=== PATIENT | female | born 1985 | race African-American/Black ===

== ENCOUNTER 2017-05-01 21:28 | Outpatient (CLI) | payer BC ==
[2017-05-02 00:12] LABS: ADD UMIC NO; UR ASCORBIC ACID NEGATIVE (NEGATIVE); UR BILIRUBIN (Dip) NEGATIVE (NEGATIVE); UR BLOOD (Dip) NEGATIVE (NEGATIVE); UR CLARITY SLIGHTLY CLOUDY (CLEAR); UR COLOR YELLOW (YELLOW); UR GLUCOSE (Dip) NEGATIVE (NEGATIVE); UR KETONES (Dip) NEGATIVE (NEGATIVE); UR LEUKOCYTE ESTERASE (Dip) NEGATIVE Leu/ul (NEGATIVE); UR NITRITE (Dip) NEGATIVE (NEGATIVE); UR RBC 0 /HPF (0-5); UR SPECIFIC GRAVITY (Dip) 1.011 (1.003-1.030); UR TOTAL PROTEIN (Dip) NEGATIVE (NEGATIVE); UR UROBILINOGEN (Dip) NEGATIVE (NEGATIVE); UR WBC 1 /HPF (0-5)
== END 2017-05-02 01:34 | disposition home or self-care (01) ==
LOC: OBT 21:28 → L-D 21:30
DX: O26.892 Other specified pregnancy related conditions, second trimester (principal); S30.1XXD Contusion of abdominal wall, subsequent encounter; W50.0XXD Accidental hit or strike by another person, subsequent encounter; O30.002 Twin pregnancy, unspecified number of placenta and unspecified number of amniotic sacs, second trimester; Z3A.27 27 weeks gestation of pregnancy
CPT/HCPCS: 76818; 81001; 81003; 87086

== ENCOUNTER 2017-05-23 02:31 | Inpatient (IN) | payer BC ==
[2017-05-23] MEDS: SOD CHLORIDE 0.9% 1,000 ML IV ×3 (03:05→17:37)
[2017-05-23 03:31] LABS: ADD MAN DIFF? NO
[2017-05-23 04:29] LABS: WHITE BLOOD COUNT 9.2 10^3/ul (4.8-10.8)
[2017-05-23 04:29] LABS: BASOPHIL # 0.1 10^3/ul (0.0-0.1); BASOPHILS % 1.1 % (0.0-2.0); EOSINOPHILS # 0.2 10^3/ul (0.0-0.5); EOSINOPHILS % 2.3 % (0.0-7.0); HEMOGLOBIN 9.9 g/dl (12.0-16.0); LYMPHOCYTES # 1.9 10^3/ul (0.8-2.9); LYMPHOCYTES % 20.2 % (15.0-51.0); MEAN CORPUSCULAR HEMOGLOBIN 29.9 pg (29.0-33.0); MEAN CORPUSCULAR HGB CONC 34.1 g/dl (32.0-37.0); MEAN CORPUSCULAR VOLUME 87.6 fl (82.0-101.0); MONOCYTES % 10.9 % (0.0-11.0); NEUTROPHIL # 5.9 10^3/ul (1.6-7.5); NEUTROPHILS % 64.3 % (39.0-77.0); PLATELET COUNT 183 10^3/UL (140-415); RED BLOOD COUNT 3.31 10^6/ul (4.20-5.40); RED CELL DISTRIBUTION WIDTH 13.2 % (11.5-14.5)
[2017-05-23 04:36] LABS: ADD UMIC NO; UR ASCORBIC ACID 20 mg/dL (NEGATIVE); UR BILIRUBIN (Dip) NEGATIVE (NEGATIVE); UR BLOOD (Dip) NEGATIVE (NEGATIVE); UR CLARITY SLIGHTLY CLOUDY (CLEAR); UR COLOR YELLOW (YELLOW); UR GLUCOSE (Dip) NEGATIVE (NEGATIVE); UR KETONES (Dip) NEGATIVE (NEGATIVE); UR LEUKOCYTE ESTERASE (Dip) NEGATIVE Leu/ul (NEGATIVE); UR NITRITE (Dip) NEGATIVE (NEGATIVE); UR RBC 0 /HPF (0-5); UR TOTAL PROTEIN (Dip) NEGATIVE (NEGATIVE); UR UROBILINOGEN (Dip) NEGATIVE (NEGATIVE); UR WBC 4 /HPF (0-5)
[2017-05-23] MEDS: MAGNESIUM SULFATE 4 GM/100 ML 100 ML IV (04:52)
[2017-05-23] MEDS: BETAMET NA PHOS/AC(6 MG/ML) 5ML INJ IM (05:21)
[2017-05-23] MEDS: MAGNESIUM SULFATE 20 GM/500 ML 500 ML IV ×2 (05:30→15:41)
[2017-05-23] MEDS: FAMOTIDINE 20 MG INJ IV (05:49)
[2017-05-23] MEDS ORDERED: FAMOTIDINE 20 MG INJ IV ×2 (09:00)
[2017-05-23] MEDS: PRENATAL VITAMIN PO (11:41)
[2017-05-23] MEDS: ACETAMINOPHEN 325 MG TAB PO ×3 (11:42→21:48)
[2017-05-23] MEDS: ASPIRIN (EC) 81 MG TAB PO (11:42)
[2017-05-23 12:45] LABS: MAGNESIUM 4.6 mg/dl (1.7-2.5)
[2017-05-23 18:38] LABS: MAGNESIUM 4.7 mg/dl (1.7-2.5)
[2017-05-24] MEDS: MAGNESIUM SULFATE 20 GM/500 ML 500 ML IV ×3 (01:44→18:54)
[2017-05-24] MEDS: FAMOTIDINE 20 MG INJ IV (01:45)
[2017-05-24] MEDS: BETAMET NA PHOS/AC(6 MG/ML) 5ML INJ IM (05:22)
[2017-05-24] MEDS: SOD CHLORIDE 0.9% 1,000 ML IV ×2 (05:59→18:53)
[2017-05-24] MEDS: ACETAMINOPHEN 325 MG TAB PO ×4 (06:12→19:11)
[2017-05-24] MEDS: ASPIRIN (EC) 81 MG TAB PO (10:30)
[2017-05-24] MEDS: PRENATAL VITAMIN PO (10:30)
[2017-05-24 10:37] LABS: MAGNESIUM 5.1 mg/dl (1.7-2.5)
[2017-05-24 19:20] LABS: MAGNESIUM 4.5 mg/dl (1.7-2.5)
[2017-05-25] MEDS: ACETAMINOPHEN 325 MG TAB PO ×5 (00:15→22:13)
[2017-05-25 00:40] LABS: MAGNESIUM 3.7 mg/dl (1.7-2.5)
[2017-05-25] MEDS: SOD CHLORIDE 0.9% 1,000 ML IV (06:27)
[2017-05-25] MEDS: ASPIRIN (EC) 81 MG TAB PO (09:29)
[2017-05-25] MEDS: PRENATAL VITAMIN PO (09:29)
[2017-05-25] MEDS: MAGNESIUM SULFATE 20 GM/500 ML 500 ML IV ×2 (12:11→22:12)
[2017-05-25] MEDS: LACTATED RINGER'S 1,000 ML IV ×2 (13:16→22:12)
[2017-05-25 19:09] LABS: MAGNESIUM 4.2 mg/dl (1.7-2.5)
[2017-05-26 00:35] LABS: MAGNESIUM 3.7 mg/dl (1.7-2.5)
[2017-05-26] MEDS: ACETAMINOPHEN 325 MG TAB PO ×4 (02:55→20:08)
[2017-05-26 08:36] LABS: MAGNESIUM 3.1 mg/dl (1.7-2.5)
[2017-05-26] MEDS: PRENATAL VITAMIN PO (09:09)
[2017-05-26] MEDS: ASPIRIN (EC) 81 MG TAB PO (09:09)
[2017-05-26] MEDS: LACTATED RINGER'S 1,000 ML IV ×2 (11:39→23:50)
[2017-05-26 12:39] LABS: MAGNESIUM 3.2 mg/dl (1.7-2.5)
[2017-05-26] MEDS: MAGNESIUM SULFATE 20 GM/500 ML 500 ML IV (23:56)
[2017-05-27] MEDS: ACETAMINOPHEN 325 MG TAB PO ×2 (05:45→09:13)
[2017-05-27 08:57] LABS: MAGNESIUM 2.7 mg/dl (1.7-2.5)
[2017-05-27] MEDS ORDERED: PRENATAL VITAMIN PO (09:00)
[2017-05-27] MEDS: ASPIRIN (EC) 81 MG TAB PO (09:09)
[2017-05-27] MEDS: PRENATAL VITAMIN PO (09:09)
[2017-05-27] MEDS: LACTATED RINGER'S 1,000 ML IV ×3 (09:10→22:46)
[2017-05-27] MEDS: NIFEdipine 10 MG CAP PO (18:14)
[2017-05-28] MEDS: NIFEdipine 10 MG CAP PO ×4 (00:24→17:37)
[2017-05-28] MEDS: LACTATED RINGER'S 1,000 ML IV ×2 (08:01→17:37)
[2017-05-28] MEDS: ASPIRIN (EC) 81 MG TAB PO (08:56)
[2017-05-28] MEDS: PRENATAL VITAMIN PO (08:56)
[2017-05-29] MEDS: NIFEdipine 10 MG CAP PO ×3 (00:13→12:29)
[2017-05-29] MEDS: PRENATAL VITAMIN PO (09:50)
[2017-05-29] MEDS: ASPIRIN (EC) 81 MG TAB PO (09:50)
== END 2017-05-29 18:05 | disposition home or self-care (01) | DRG 778 ==
LOC: OBT 02:31 → L-D 02:33 → OBT 06:13 → L-D 06:14 → PP1 07:14
PROVIDERS: Obstetrics & Gynecology
DX: O60.03 Preterm labor without delivery, third trimester (principal); O26.873 Cervical shortening, third trimester; Z3A.30 30 weeks gestation of pregnancy; O30.003 Twin pregnancy, unspecified number of placenta and unspecified number of amniotic sacs, third trimester
CPT/HCPCS: 36415; 76817; 76818; 81001; 81003; 83735; 85025; 87086

== ENCOUNTER 2017-06-25 04:56 | Inpatient (IN) | payer BC ==
[2017-06-25] MEDS: NIFEdipine 10 MG CAP PO ×3 (05:49→17:49)
[2017-06-25] MEDS: LACTATED RINGER'S 1,000 ML IV ×3 (05:49→17:44)
[2017-06-25] MEDS ORDERED: LACTATED RINGER'S 500 ML IV (06:00)
[2017-06-25 06:33] LABS: ADD MAN DIFF? NO
[2017-06-25 06:43] LABS: BASOPHIL # 0.1 10^3/ul (0.0-0.1); BASOPHILS % 0.5 % (0.0-2.0); EOSINOPHILS # 0.1 10^3/ul (0.0-0.5); EOSINOPHILS % 0.8 % (0.0-7.0); HEMATOCRIT 30.6 % (37.0-47.0); HEMOGLOBIN 10.1 g/dl (12.0-16.0); LYMPHOCYTES # 1.7 10^3/ul (0.8-2.9); LYMPHOCYTES % 18.4 % (15.0-51.0); MEAN CORPUSCULAR HEMOGLOBIN 28.2 pg (29.0-33.0); MEAN CORPUSCULAR VOLUME 85.5 fl (82.0-101.0); MEAN PLATELET VOLUME 11.8 fl (7.4-10.4); MONOCYTE # 1.1 10^3/ul (0.3-0.9); NEUTROPHIL # 6.2 10^3/ul (1.6-7.5); PLATELET COUNT 167 10^3/UL (140-415); RED BLOOD COUNT 3.58 10^6/ul (4.20-5.40); RED CELL DISTRIBUTION WIDTH 13.5 % (11.5-14.5)
[2017-06-25 06:43] LABS: WHITE BLOOD COUNT 9.2 10^3/ul (4.8-10.8)
[2017-06-25 07:02] LABS: INR 0.96; PROTIME 12.9 Sec (11.9-14.9)
[2017-06-25 07:03] LABS: PARTIAL THROMBOPLASTIN TIME 27.8 Sec (25.0-35.0)
[2017-06-25] MEDS: TERBUTALINE 1 MG/ML INJ SC ×3 (07:15→11:08)
[2017-06-25] MEDS: ACETAMINOPHEN 500 MG TAB PO ×2 (07:15→17:43)
[2017-06-25] MEDS ORDERED: NIFEdipine 10 MG CAP PO (12:00)
[2017-06-25 12:44] LABS: HEPATITIS B SURFACE ANTIGEN NEGATIVE (NEGATIVE)
[2017-06-25 13:17] LABS: ADD UMIC NO; UR ASCORBIC ACID NEGATIVE (NEGATIVE); UR BILIRUBIN (Dip) NEGATIVE (NEGATIVE); UR BLOOD (Dip) NEGATIVE (NEGATIVE); UR CLARITY CLEAR (CLEAR); UR COLOR YELLOW (YELLOW); UR GLUCOSE (Dip) NEGATIVE (NEGATIVE); UR KETONES (Dip) NEGATIVE (NEGATIVE); UR LEUKOCYTE ESTERASE (Dip) NEGATIVE Leu/ul (NEGATIVE); UR NITRITE (Dip) NEGATIVE (NEGATIVE); UR SPECIFIC GRAVITY (Dip) 1.013 (1.003-1.030); UR TOTAL PROTEIN (Dip) NEGATIVE (NEGATIVE); UR UROBILINOGEN (Dip) NEGATIVE (NEGATIVE)
[2017-06-25] MEDS: morphine 2 MG INJ IV (14:01)
[2017-06-25 15:05] LABS: RAPID PLASMA REAGIN NONREACTIVE (NR)
[2017-06-25] MEDS: BETAMET NA PHOS/AC(6 MG/ML) 5ML INJ IM (16:20)
[2017-06-25] MEDS: HYDROCODONE/APAP (5/325) TAB PO (20:32)
[2017-06-26] MEDS: VITAMIN A & D 5 GM OINT PACKET TOP (00:09)
[2017-06-26] MEDS: NIFEdipine 10 MG CAP PO ×4 (00:09→23:31)
[2017-06-26] MEDS: HYDROCODONE/APAP (5/325) TAB PO ×2 (00:53→05:18)
[2017-06-26] MEDS: LACTATED RINGER'S 1,000 ML IV ×3 (02:00→23:30)
[2017-06-26] MEDS ORDERED: BUTORPHANOL 2 MG INJ IV ×2 (11:00)
[2017-06-26 13:20] LABS: AMPHETAMINE/METHAMPHETAMINE Negative (NEGATIVE); BARBITURATES Negative (NEGATIVE); BENZODIAZEPINES Negative (NEGATIVE); CANNABINOIDS Negative (NEGATIVE); COCAINE Negative (NEGATIVE); OPIATES Positive (NEGATIVE)
[2017-06-26] MEDS: BETAMET NA PHOS/AC(6 MG/ML) 5ML INJ IM (16:35)
[2017-06-27] MEDS: LACTATED RINGER'S 1,000 ML IV ×5 (00:01→15:50)
[2017-06-27] MEDS: NIFEdipine 10 MG CAP PO ×3 (05:29→12:00)
[2017-06-27] MEDS ORDERED: OXYTOCIN 30 UNITS/LR 500 ML IV (07:30)
[2017-06-27] MEDS ORDERED: METHYLERGONOVINE 0.2 MG INJ IM ×2 (07:30→16:00)
[2017-06-27] MEDS ORDERED: MISOPROSTOL 200 MCG TAB PR ×2 (07:30→16:00)
[2017-06-27] MEDS ORDERED: CARBOPROST 250 MCG INJ IM ×2 (07:30→16:00)
[2017-06-27] MEDS ORDERED: morphine SULFATE/PF (10 MG/10 ML) INJ (11:18)
[2017-06-27] MEDS ORDERED: OXYTOCIN 10 UNIT INJ ×2 (11:18→11:49)
[2017-06-27] MEDS ORDERED: ONDANSETRON 4 MG INJ (11:18)
[2017-06-27] MEDS ORDERED: PHENYLephrine (100 MCG/ML) 5ML SYG (11:18)
[2017-06-27] MEDS ORDERED: PHENYLephrine 10 MG INJ (11:37)
[2017-06-27] MEDS ORDERED: FENTAnyl 50 MCG/ML VIAL (11:58)
[2017-06-27] MEDS: CEFAZOLIN 2 GM/50 ML (PMX) 50 ML IVPB (12:25)
[2017-06-27] MEDS: KETOROLAC 30 MG INJ IV ×2 (13:15→19:39)
[2017-06-27] MEDS ORDERED: ONDANSETRON 4 MG INJ IV ×2 (13:30→16:00)
[2017-06-27] MEDS ORDERED: morphine 2 MG INJ IV (13:30)
[2017-06-27] MEDS ORDERED: NALOXONE (0.4 MG/ML) INJ IV (13:30)
[2017-06-27] MEDS: OXYTOCIN 30 UNITS/LR 500 ML IV ×3 (13:48→22:09)
[2017-06-27] MEDS: morphine 10 MG INJ IV (14:04)
[2017-06-27] MEDS ORDERED: DIPHENHYDRAMINE 50 MG INJ IV (16:00)
[2017-06-27] MEDS ORDERED: ZOLPIDEM 5 MG TAB PO (16:00)
[2017-06-27] MEDS: DIPHENHYDRAMINE 50 MG INJ IV ×2 (16:04→22:03)
[2017-06-27] MEDS: IBUPROFEN 600 MG TAB PO (16:34)
[2017-06-27] MEDS: SENNA/DOCUSATE NA (8.6MG/50MG) TAB PO (21:35)
[2017-06-28] MEDS: morphine 10 MG INJ IV (00:52)
[2017-06-28] MEDS: DIPHENHYDRAMINE 50 MG INJ IV ×2 (04:10→10:17)
[2017-06-28] MEDS: KETOROLAC 30 MG INJ IV (05:02)
[2017-06-28] MEDS: IBUPROFEN 600 MG TAB PO ×4 (05:51→18:09)
[2017-06-28] MEDS: LACTATED RINGER'S 1,000 ML IV (08:14)
[2017-06-28 09:03] LABS: ADD MAN DIFF? NO
[2017-06-28 09:08] LABS: ABNORMAL IP MESSAGE 1; BASOPHILS % 0.2 % (0.0-2.0); EOSINOPHILS % 0.2 % (0.0-7.0); HEMATOCRIT 29.7 % (37.0-47.0); HEMOGLOBIN 9.7 g/dl (12.0-16.0); LYMPHOCYTES # 1.6 10^3/ul (0.8-2.9); MEAN CORPUSCULAR HGB CONC 32.7 g/dl (32.0-37.0); MEAN CORPUSCULAR VOLUME 85.8 fl (82.0-101.0); MEAN PLATELET VOLUME 11.9 fl (7.4-10.4); MONOCYTE # 1.9 10^3/ul (0.3-0.9); MONOCYTES % 11.8 % (0.0-11.0); NEUTROPHIL # 12.6 10^3/ul (1.6-7.5); NEUTROPHILS % 76.9 % (39.0-77.0); PLATELET COUNT 153 10^3/UL (140-415); RED BLOOD COUNT 3.46 10^6/ul (4.20-5.40); RED CELL DISTRIBUTION WIDTH 13.9 % (11.5-14.5)
[2017-06-28 09:08] LABS: WHITE BLOOD COUNT 16.3 10^3/ul (4.8-10.8)
[2017-06-28 09:13] LABS: POSITIVE DIFF @See below
[2017-06-28] MEDS: LANOLIN 7 GM TUBE TOP (10:13)
[2017-06-28] MEDS: SENNA/DOCUSATE NA (8.6MG/50MG) TAB PO ×2 (10:13→21:26)
[2017-06-28] MEDS: OXYCODONE/ACETAMINOPHEN (5/325) TAB PO ×3 (12:15→21:26)
[2017-06-29] MEDS: IBUPROFEN 600 MG TAB PO ×5 (00:08→23:36)
[2017-06-29] MEDS: OXYCODONE/ACETAMINOPHEN (5/325) TAB PO ×5 (01:31→23:36)
[2017-06-29] MEDS: KETOROLAC 30 MG INJ IM (07:19)
[2017-06-29] MEDS: BISACODYL 10 MG SUPP PR (08:00)
[2017-06-29] MEDS: SENNA/DOCUSATE NA (8.6MG/50MG) TAB PO ×2 (12:51→20:34)
[2017-06-29] MEDS: LANOLIN 7 GM TUBE TOP (23:36)
[2017-06-30] MEDS: OXYCODONE/ACETAMINOPHEN (5/325) TAB PO ×5 (04:19→22:22)
[2017-06-30] MEDS: IBUPROFEN 600 MG TAB PO ×4 (05:46→23:59)
[2017-06-30] MEDS: DIPHTH/TET/ACEL PERTUSS (ADULT) 0.5 ML VIAL IM* (09:00)
[2017-06-30] MEDS: SENNA/DOCUSATE NA (8.6MG/50MG) TAB PO ×2 (09:32→21:17)
[2017-06-30] MEDS: FUROSEMIDE 20 MG TAB PO (17:09)
[2017-07-01] MEDS: OXYCODONE/ACETAMINOPHEN (5/325) TAB PO ×2 (03:33→09:22)
[2017-07-01] MEDS: IBUPROFEN 600 MG TAB PO ×2 (05:43→12:34)
[2017-07-01] MEDS: SENNA/DOCUSATE NA (8.6MG/50MG) TAB PO (09:21)
== END 2017-07-01 13:45 | disposition home or self-care (01) | DRG 765 ==
LOC: OBT 04:56 → L-D 04:56 → OBT 07:55 → L-D 06-27 12:38 → PP1 07:55 → L-D 09:25
PROVIDERS: Obstetrics & Gynecology
PROC: 10D00Z1 Extraction of Products of Conception, Low, Open Approach (ICD-10-PCS; principal; 2017-06-27 10:30)
PROC: 3E033VJ Introduction of Other Hormone into Peripheral Vein, Percutaneous Approach (ICD-10-PCS; 2017-06-27 10:30)
DX: O34.211 Maternal care for low transverse scar from previous cesarean delivery (principal); O60.14X0 Preterm labor third trimester with preterm delivery third trimester, not applicable or unspecified; O30.003 Twin pregnancy, unspecified number of placenta and unspecified number of amniotic sacs, third trimester; Z37.2 Twins, both liveborn; Z3A.34 34 weeks gestation of pregnancy
CPT/HCPCS: 36415; 76817; 76818; 80307; 81003; 85025; 85384; 85610; 85730; 86592; 86850; 86900; 86901; 87086; 87340; 88307; 96360; 96361; 99464

== ENCOUNTER 2018-01-28 13:42 | Emergency (ER) | payer BC ==
[2018-01-28 15:57] LABS: ADD UMIC NO; UR ASCORBIC ACID 40 mg/dL (NEGATIVE); UR BACTERIA FEW /HPF (NONE SEEN); UR BILIRUBIN (Dip) NEGATIVE (NEGATIVE); UR BLOOD (Dip) NEGATIVE (NEGATIVE); UR CLARITY SLIGHTLY CLOUDY (CLEAR); UR COLOR YELLOW (YELLOW); UR GLUCOSE (Dip) NEGATIVE (NEGATIVE); UR KETONES (Dip) NEGATIVE (NEGATIVE); UR LEUKOCYTE ESTERASE (Dip) NEGATIVE Leu/ul (NEGATIVE); UR MUCUS FEW /HPF (NONE SEEN); UR NITRITE (Dip) NEGATIVE (NEGATIVE); UR RBC 1 /HPF (0-5); UR SPECIFIC GRAVITY (Dip) 1.016 (1.003-1.030); UR SQUAMOUS EPITHELIAL CELL FEW /HPF (FEW); UR TOTAL PROTEIN (Dip) NEGATIVE (NEGATIVE); UR UROBILINOGEN (Dip) 1+ mg/dL (NEGATIVE); UR WBC 6 /HPF (0-5)
[2018-01-28 16:00] LABS: ADD MAN DIFF? NO
[2018-01-28 16:01] LABS: BASOPHIL # 0.1 10^3/ul (0.0-0.1); BASOPHILS % 1.3 % (0.0-2.0); EOSINOPHILS # 0.2 10^3/ul (0.0-0.5); EOSINOPHILS % 3.2 % (0.0-7.0); HEMATOCRIT 37.3 % (37.0-47.0); HEMOGLOBIN 12.6 g/dl (12.0-16.0); LYMPHOCYTES # 2.2 10^3/ul (0.8-2.9); LYMPHOCYTES % 31.8 % (15.0-51.0); MEAN CORPUSCULAR HEMOGLOBIN 29.9 pg (29.0-33.0); MEAN CORPUSCULAR HGB CONC 33.8 g/dl (32.0-37.0); MEAN CORPUSCULAR VOLUME 88.4 fl (82.0-101.0); MEAN PLATELET VOLUME 10.7 fl (7.4-10.4); MONOCYTE # 0.8 10^3/ul (0.3-0.9); MONOCYTES % 11.7 % (0.0-11.0); NEUTROPHIL # 3.6 10^3/ul (1.6-7.5); NEUTROPHILS % 51.9 % (39.0-77.0); PLATELET COUNT 269 10^3/UL (140-415); RED BLOOD COUNT 4.22 10^6/ul (4.20-5.40); RED CELL DISTRIBUTION WIDTH 13.6 % (11.5-14.5)
[2018-01-28 16:01] LABS: WHITE BLOOD COUNT 6.9 10^3/ul (4.8-10.8)
[2018-01-28 16:25] LABS: ANION GAP 12 (8-16); BLOOD UREA NITROGEN 6 mg/dl (7-20); CALCIUM 9.3 mg/dl (8.4-10.2); CARBON DIOXIDE 27 mmol/L (21-31); CHLORIDE 103 mmol/L (97-110); CREATININE 0.76 mg/dl (0.44-1.00); GLUCOSE 73 mg/dl (70-220); POTASSIUM 3.9 mmol/L (3.5-5.1); SODIUM 138 mmol/L (135-144)
== END 2018-01-28 17:51 | disposition home or self-care (01) ==
LOC: FTE 13:42
DX: Z33.1 Pregnant state, incidental (principal)
CPT/HCPCS: 36415; 76801; 76817; 80048; 81001; 81003; 81025; 84702; 85025; 99284-25